=== PATIENT | female | born 1965 ===

== ENCOUNTER 2023-04-11 10:00 | Day surgery (SDC) | payer OTHER ==
[~2023-04-11] VITALS: Ht 165.1 cm; Wt 67.5 kg
[~2023-04-11 10:00] MED LIST: Amlodipine Bes2.5 MG PO; CALCIUM 500-VI1 EAC4 PO; MULTIPLE VITAM1 EACH PO
[2023-04-11 12:36] VITALS: BP 112/70
== END 2023-04-11 12:23 | disposition home or self-care (01) ==
LOC: ORSCSDS 10:00
PROVIDERS: Surgery
PROC: 0DBH8ZX Excision of Cecum, Via Natural or Artificial Opening Endoscopic, Diagnostic (ICD-10-PCS; principal; 2023-04-11 11:30)
DX: Z12.11 Encounter for screening for malignant neoplasm of colon (principal); Z86.010 Personal history of colon polyps; K63.5 Polyp of colon; K64.8 Other hemorrhoids; K64.4 Residual hemorrhoidal skin tags; I10 Essential (primary) hypertension; E78.5 Hyperlipidemia, unspecified; Z79.899 Other long term (current) drug therapy; Z85.43 Personal history of malignant neoplasm of ovary; Z85.820 Personal history of malignant melanoma of skin
CPT/HCPCS: 88305; J2704; J7120